=== PATIENT | female | born 1980 | race Hispanic/Latino ===

== ENCOUNTER 2021-03-08 13:04 | Emergency (ER) | payer OTHER ==
[~2021-03-08] VITALS: Ht 167.6 cm; Wt 111.1 kg
[2021-03-08] MEDS ORDERED: SODIUM CHLORIDE 0.9% 1000ML 1,000 ML IV STA (13:31)
[2021-03-08] MEDS ORDERED: FAMOTIDINE 20 MG/2 ML VIAL IV NR (13:45)
[2021-03-08] MEDS ORDERED: KETOROLAC TROMETHAMINE 30 MG/ML VIAL IV NR (13:45)
[2021-03-08] MEDS ORDERED: ONDANSETRON HCL INJ 2MG/ML 2ML 2 MG/ML VIAL IV NR (13:45)
[2021-03-08] MEDS ORDERED: SODIUM CHLORIDE 0.9% 1000ML 1,000 ML ONE (14:00)
[2021-03-08] MEDS ORDERED: ONDANSETRON HCL INJ 2MG/ML 2ML 2 MG/ML VIAL ONE (14:00)
[2021-03-08] MEDS ORDERED: KETOROLAC TROMETHAMINE 30 MG/ML VIAL ONE (14:00)
[2021-03-08] MEDS ORDERED: IBUPROFEN IB200 MG PO (14:03)
[2021-03-08] MEDS ORDERED: ONDANSETRON ODT4 MG PO (14:03)
[2021-03-08] MEDS ORDERED: ACETAMINOPHEN-1 EAC4 PO (14:03)
[2021-03-08] MEDS ORDERED: FAMOTIDINE 20 MG/2 ML VIAL IV ONE (14:11)
[2021-03-08] MEDS ORDERED: CEFTRIAXONE 1 GM VIAL IV ONE (14:45)
[2021-03-08] MEDS ORDERED: CEFDINIR300 MG PO (14:51)
[2021-03-08] MEDS ORDERED: CEFTRIAXONE 1 GM in SODIUM CHLORIDE 0.9% 50ML 50 ML IV ONE (15:00)
== END 2021-03-08 15:04 | disposition home or self-care (01) ==
LOC: FSED 13:35
DX: R31.9 Hematuria, unspecified (principal); R11.2 Nausea with vomiting, unspecified; R10.32 Left lower quadrant pain; R10.13 Epigastric pain
CPT/HCPCS: 74176; 80053; 85025; 99284; J1885; J2405; J7030

== ENCOUNTER 2024-05-14 15:14 | Emergency (ER) | payer SELFPAY ==
[~2024-05-14] VITALS: Ht 170.2 cm; Wt 106.1 kg
[~2024-05-14 15:14] MED LIST: ACETAMINOPHEN-1 EAC4 PO; CEFDINIR300 MG PO; IBUPROFEN IB200 MG PO; ONDANSETRON ODT4 MG PO
[2024-05-14] MEDS: SODIUM CHLORIDE 0.9% 1000ML 1,000 ML IV SCH (18:18)
[2024-05-14] MEDS: ONDANSETRON HCL INJ 2MG/ML 2ML 2 MG/ML VIAL IV STA (18:18)
[2024-05-14 18:53] VITALS: BP 167/96; PULSE 70; PULSE 84; RESP 18; TEMP 98.5; TEMP 98.6; O2SAT 98
[2024-05-14] MEDS ORDERED: ULTRAM 50MG50 MG PO (18:55)
[2024-05-14] MEDS ORDERED: CEPHALEXIN500 MG PO (18:57)
[2024-05-14] MEDS ORDERED: ONDANSETRON ODT4 MG PO (18:58)
== END 2024-05-14 19:48 | disposition home or self-care (01) ==
LOC: FSED 15:39
DX: R30.0 Dysuria (principal); N39.0 Urinary tract infection, site not specified; R31.9 Hematuria, unspecified; R19.09 Other intra-abdominal and pelvic swelling, mass and lump; R11.2 Nausea with vomiting, unspecified
CPT/HCPCS: 74176; 80053; 81003; 81025; 85025; 99284; J0696; J2405; J7030